=== PATIENT | male | born 1960 | race Caucasian/White ===

== ENCOUNTER → 2017-10-16 | Day surgery (SDC) | payer BC ==
[~2017-10-16] MED LIST: Lactated Ringers 1,000 ML IV SCH
[2017-10-16 12:56] VITALS: BP 127/68
--- NOTE | 2017-10-16 13:53 | OR ---
DATE OF OPERATION: 10/16/2017 PREOPERATIVE DIAGNOSIS: SCREENING COLONOSCOPY. POSTOPERATIVE DIAGNOSIS: SCREENING COLONOSCOPY. SURGEON: Roderick Howard MD PROCEDURE: FULL-LENGTH COLONOSCOPY. ANESTHESIA: CONCRETE FLOATER. COMPLICATIONS: None. SPECIMEN: None. FINDINGS: 1. Full-length colonoscopy. 2. Minimal distal sigmoid diverticulosis. RECOMMENDATIONS: Followup colonoscopy every 10 years. INDICATIONS: The patient was in for routine physical. He is at the age for a screening colonoscopy, and he has never had one. DESCRIPTION OF PROCEDURE: The patient was prepped and draped, placed in the left lateral decubitus position. A lubricated Olympus colonoscope was inserted and easily advanced to the cecum. Direct visualization of the ileocecal valve and appendiceal orifice was accomplished. Bowel prep was adequate. Upon withdrawal of the scope, the right transverse and descending colons were completely benign. The patient did have scattered diverticula in the distal portion of the sigmoid and in the rectosigmoid junction, very mild in severity without inflammatory change. On the left side of the colon, I found no signs of any polyps, mass, ulceration, or bleeding sites. No vascular abnormalities or signs of colitis. The rectal vault was benign. Retroflexion showed no perianal lesions. Air was suctioned and scope removed without complication. The patient stable in the recovery room. MITCHELL/KODY /[id number]
== END ==
LOC: CC.SDS 11:05
PROVIDERS: ATTEND Family Medicine
DX: Z12.11 Encounter for screening for malignant neoplasm of colon (principal); K57.30 Diverticulosis of large intestine without perforation or abscess without bleeding; I10 Essential (primary) hypertension; N40.0 Benign prostatic hyperplasia without lower urinary tract symptoms; E78.5 Hyperlipidemia, unspecified; Z79.899 Other long term (current) drug therapy; Z72.0 Tobacco use
CPT/HCPCS: J7120

== ENCOUNTER 2024-03-01 10:06 | Inpatient (IN) | payer BC ==
[2024-03-01 10:17] LABS: BASOPHILS ABSOLUTE AUTO 0.02 10^3/uL (0.00-0.50); BASOPHILS PERCENT AUTO 0.2 % (0-1); EOSINOPHILS ABSOLUTE AUTO 0.04 10^3/uL (0.00-1.50); EOSINOPHILS PERCENT AUTO 0.4 % (0-6); HEMATOCRIT 44.4 % (42.0-52.0); HEMOGLOBIN 14.6 g/dL (14.0-18.0); IMMATURE GRAN ABSOLUTE AUTO 0.01 10^3/uL (0.00-0.49); IMMATURE GRAN PERCENT AUTO 0.1 % (0.0-4.9); LYMPHOCYTES ABSOLUTE AUTO 1.28 10^3/uL (0.60-5.00); LYMPHOCYTES PERCENT AUTO 12.7 % (24-44); MEAN CORPUSCULAR HEMOGLOBIN 29.4 pg (27.0-32.0); MEAN CORPUSCULAR HGB CONC 32.9 g/dL (32.0-36.0); MEAN CORPUSCULAR VOLUME 89.3 fL (83.0-97.0); MONOCYTES ABSOLUTE AUTO 0.79 10^3/uL (0.00-1.50); MONOCYTES PERCENT AUTO 7.8 % (0-10); NEUTROPHILS ABSOLUTE AUTO 7.96 x10^3/uL (1.80-8.00); NEUTROPHILS PERCENT AUTO 78.8 % (41-71); PLATELET COUNT,PLT 175 10^3/uL (150-400); RED BLOOD CELL COUNT 4.97 x10^6/uL (4.50-6.00); WHITE BLOOD CELL COUNT,WBC 10.1 10^3/uL (4.0-11.0)
[2024-03-01 10:19] LABS: APPEARANCE,URINE CLEAR (CLEAR); BILIRUBIN,URINE SMALL (NEGATIVE); COLOR,URINE DARK YELLOW (YELLOW); GLUCOSE,URINE NEGATIVE (NEGATIVE); KETONES,URINE TRACE mg/dL (NEGATIVE); LEUKOCYTE ESTERASE,URINE NEGATIVE (NEGATIVE); NITRITE,URINE NEGATIVE (NEGATIVE); OCCULT BLOOD,URINE NEGATIVE (NEGATIVE); PROTEIN,URINE 100 mg/dL (NEGATIVE)
[2024-03-01 10:28] LABS: BACTERIA,URINE RARE /HPF (NOT SEEN); EPITHELIAL CELLS,URINE NOT SEEN /HPF (NOT SEEN); MUCUS,URINE FEW /HPF (NOT SEEN); RBC,URINE NOT SEEN /HPF (0-5); WBC,URINE NOT SEEN /HPF (0-5)
[2024-03-01 10:40] LABS: ALANINE AMINOTRANSFERASE,ALT 16 U/L (12-78); ALBUMIN 3.6 g/dL (3.4-5.0); ALKALINE PHOSPHATASE 73 U/L (46-116); ASPARTATE AMNIOTRANSFERASE,AST 14 U/L (15-37); BILIRUBIN TOTAL 1.5 mg/dL (0.0-1.0); BLOOD UREA NITROGEN,BUN 22 mg/dL (7-18); C-REACTIVE PROTEIN 12.31 mg/dL (<=0.50); CALCIUM 9.7 mg/dL (8.4-10.1); CARBON DIOXIDE,CO2 29 mmol/L (21-32); CHLORIDE,CL 103 mEq/L (98-106); CREATININE 1.2 mg/dL (0.7-1.3); ESTIMATED GFR 69 mL/min (>=60); GLUCOSE RANDOM 111 mg/dL (75-99); LIPASE 20 U/L (16-77); POTASSIUM,K 4.2 mEq/L (3.5-5.0); SODIUM,NA 141 mEq/L (136-145)
[2024-03-01] MEDS: Iopamidol 755 Mg/ML 100 ML Bottle IVPUSH ONE (13:52)
[2024-03-01] MEDS: Barium Sulfate w/v 2% Oral Susp 450 ML Bottle PO ONE (13:52)
[2024-03-01] MEDS ORDERED: Sodium Chloride 0.9% 10 ML Syringe FLUSH PRN (14:58)
[2024-03-01] MEDS ORDERED: Ondansetron 4 MG/2 ML SDV IV PRN (15:04)
[2024-03-01] MEDS ORDERED: Ondansetron 4 MG Tab.DIS PO PRN (15:04)
[2024-03-01] MEDS: Hydrochlorothiazide 25 MG Tab PO SCH (15:50)
[2024-03-01] MEDS: Losartan 100 MG Tab PO SCH (15:50)
[2024-03-01] MEDS: metroNIDAZOLE/Normal Saline 500 MG in Premix Bag 1 BAG IV SCH (15:52)
[2024-03-01] MEDS: Sodium Chloride 0.9% 1,000 ML IV SCH (15:54)
[2024-03-01] MEDS: Levofloxacin/Dextrose 5%-Water 750 MG in Premix Bag 1 BAG IV SCH (16:53)
[2024-03-01] MEDS: Acetaminophen 325 MG Tab PO PRN (19:25)
[2024-03-01] MEDS: atorvaSTATin 10 MG Tab PO SCH (19:25)
[2024-03-02 07:14] LABS: BASOPHILS ABSOLUTE AUTO 0.02 10^3/uL (0.00-0.50); BASOPHILS PERCENT AUTO 0.3 % (0-1); EOSINOPHILS PERCENT AUTO 1.3 % (0-6); HEMATOCRIT 39.1 % (42.0-52.0); HEMOGLOBIN 13.1 g/dL (14.0-18.0); IMMATURE GRAN ABSOLUTE AUTO 0.01 10^3/uL (0.00-0.49); IMMATURE GRAN PERCENT AUTO 0.1 % (0.0-4.9); LYMPHOCYTES ABSOLUTE AUTO 0.99 10^3/uL (0.60-5.00); MEAN CORPUSCULAR HEMOGLOBIN 29.7 pg (27.0-32.0); MEAN CORPUSCULAR HGB CONC 33.5 g/dL (32.0-36.0); MEAN CORPUSCULAR VOLUME 88.7 fL (83.0-97.0); MONOCYTES ABSOLUTE AUTO 0.73 10^3/uL (0.00-1.50); MONOCYTES PERCENT AUTO 9.6 % (0-10); NEUTROPHILS ABSOLUTE AUTO 5.75 x10^3/uL (1.80-8.00); NEUTROPHILS PERCENT AUTO 75.7 % (41-71); PLATELET COUNT,PLT 158 10^3/uL (150-400); RED BLOOD CELL COUNT 4.41 x10^6/uL (4.50-6.00); WHITE BLOOD CELL COUNT,WBC 7.6 10^3/uL (4.0-11.0)
[2024-03-02] MEDS: HYDROmorphone 0.5 MG/0.5 ML Syringe IVPUSH PRN (07:26)
[2024-03-02 07:42] LABS: ALBUMIN 2.9 g/dL (3.4-5.0); BILIRUBIN TOTAL 1.4 mg/dL (0.0-1.0); C-REACTIVE PROTEIN 13.72 mg/dL (<=0.50); CREATININE 1.1 mg/dL (0.7-1.3); EST CRCL DRUG DOSING (CG) 77.4 mL/min; POTASSIUM,K 3.7 mEq/L (3.5-5.0); PROTEIN TOTAL,TP 6.9 g/dL (6.4-8.2)
[2024-03-02] MEDS: Acetaminophen/HYDROcodone 325-5 MG Tab PO PRN (12:03)
[2024-03-03 07:08] LABS: BASOPHILS ABSOLUTE AUTO 0.03 10^3/uL (0.00-0.50); BASOPHILS PERCENT AUTO 0.5 % (0-1); EOSINOPHILS ABSOLUTE AUTO 0.19 10^3/uL (0.00-1.50); EOSINOPHILS PERCENT AUTO 3.2 % (0-6); HEMATOCRIT 39.1 % (42.0-52.0); LYMPHOCYTES ABSOLUTE AUTO 0.91 10^3/uL (0.60-5.00); LYMPHOCYTES PERCENT AUTO 15.1 % (24-44); MEAN CORPUSCULAR HEMOGLOBIN 29.9 pg (27.0-32.0); MEAN CORPUSCULAR HGB CONC 33.2 g/dL (32.0-36.0); MEAN CORPUSCULAR VOLUME 89.9 fL (83.0-97.0); MONOCYTES ABSOLUTE AUTO 0.53 10^3/uL (0.00-1.50); MONOCYTES PERCENT AUTO 8.8 % (0-10); NEUTROPHILS ABSOLUTE AUTO 4.35 x10^3/uL (1.80-8.00); NEUTROPHILS PERCENT AUTO 72.4 % (41-71); PLATELET COUNT,PLT 166 10^3/uL (150-400); RED BLOOD CELL COUNT 4.35 x10^6/uL (4.50-6.00)
[2024-03-03 07:28] LABS: ALBUMIN 2.8 g/dL (3.4-5.0); BILIRUBIN TOTAL 0.7 mg/dL (0.0-1.0); C-REACTIVE PROTEIN 10.01 mg/dL (<=0.50); CALCIUM 9.2 mg/dL (8.4-10.1); EST CRCL DRUG DOSING (CG) 85.14 mL/min; POTASSIUM,K 3.8 mEq/L (3.5-5.0); PROTEIN TOTAL,TP 6.8 g/dL (6.4-8.2)
[2024-03-03 07:48] VITALS: BP 137/76
[2024-03-03 09:13] VITALS: PULSE 95
== END 2024-03-03 11:25 | disposition home or self-care (01) | DRG 244 ==
LOC: CC.FCMC 10:06 → CC.LAB 10:06 → CC.MS 14:48 → UNDOADMIN 14:48 → CC.MS 15:04
PROVIDERS: ADMIT Nurse Practitioner Family; ATTEND Physician Assistant Medical
DX: K57.20 Diverticulitis of large intestine with perforation and abscess without bleeding (principal); E78.00 Pure hypercholesterolemia, unspecified; I10 Essential (primary) hypertension; N40.0 Benign prostatic hyperplasia without lower urinary tract symptoms; E86.0 Dehydration; Z79.899 Other long term (current) drug therapy; Z98.890 Other specified postprocedural states
CPT/HCPCS: 36415; 74177; 80053; 81001; 83690; 84153; 85025; 86140; 99223; 99233; 99238; A9270-GY; J1170; J1836; J1956; J3490; J7030; Q9967